=== PATIENT | male | born 1990 | race Caucasian/White ===

== ENCOUNTER 2017-02-18 14:26 | Emergency (ER) | payer BC ==
[2017-02-18] MEDS ORDERED: BABY ASPIRIN 81 MG CHEW PO ONE (14:36)
[2017-02-18] MEDS ORDERED: Carafate 1 GM PO ONE ×2 (14:36→14:47)
[2017-02-18] MEDS ORDERED: Pepcid 20 MG VIAL IV ONE ×2 (14:36→14:47)
[2017-02-18] MEDS ORDERED: GI COCKTAIL 60ML (Belladonn/Phenobarb/Lidoc PO ONE (14:38)
--- NOTE | 2017-02-18 14:44 | ERPHSYRPT ---
- History of Present Illness Time Seen by Provider: 02/18/17 14:30 Historian: patient, family Exam Limitations: no limitations Physician History: patient developed some chest pain after eating some spicy food last pm with horse radish; pain radiates to back on the right ; no N&V; no prior hx; hasn;t eaten since; some relief with tums; no sob or trauma; no prior hx; pain 7/10 no 510; awoke patietn from sleep at 330 am today Timing/Duration: today (persists), yesterday (onset), constant, gradual onset Activities at Onset: sleep Quality: burning Location: epigastric Chest Pain Radiation: back (right) Severity of Pain-Max: moderate Severity of Pain-Current: mild Modifying Factors: Improves With: antacids (help) Associated Symptoms: heartburn Prior Chest Pain/Cardiac Workup: no prior chest pain, no prior cardiac workup Nitro Today/Relief: no nitro taken today Aspirin Treatment Today: no aspirin today, provided by ED Allergies/Adverse Reactions: amoxicillin [Amoxicillin] Allergy (Mild, Verified 02/18/17 14:41) Hives Hx Tetanus, Diphtheria Vaccination/Date Given: Yes (Less than 5 yrs) Hx Influenza Vaccination/Date Given: No Hx Pneumococcal Vaccination/Date Given: No - Review of Systems Constitutional: No Symptoms Eyes: No Symptoms Ears, Nose, & Throat: No Symptoms Respiratory: No Cough, No Dyspnea, No Wheezing Cardiac: Chest Pain, No Edema, No Palpitations, No Syncope Abdominal/Gastrointestinal: No Abdominal Pain, No Nausea, No Vomiting, No Diarrhea Genitourinary Symptoms: No Symptoms Musculoskeletal: Back Pain (referred from front to right back), No Fall, No Injury Skin: No Symptoms Neurological: No Symptoms Psychological: No Symptoms Endocrine: No Symptoms Hematologic/Lymphatic: No Symptoms Immunological/Allergic: No Symptoms - Past Medical History Pertinent Past Medical History: No - Past Surgical History Past Surgical History: No - Social History Smoking Status: Never smoker Exposure to second hand smoke: No Alcohol Use: Socially Drug Use: none Patient Lives Alone: No Significant Family History: no pertinent family hx - Nursing Vital Signs Nursing Vital Signs: Initial Vital Signs Pulse Rate 74 02/18/17 14:33 Respiratory Rate 18 02/18/17 14:33 Blood Pressure 176/68 02/18/17 14:33 O2 Sat by Pulse Oximetry 99 02/18/17 14:33 Pain Scale Pain Intensity 5 - Physical Exam General Appearance: moderate distress, alert, obese Eye Exam: PERRL/EOMI, eyes nml inspection, No photophobia Ears, Nose, Throat Exam: normal ENT inspection, TMs normal, pharynx normal, moist mucous membranes Neck Exam: normal inspection, non-tender, supple, full range of motion, No meningismus, No JVD Respiratory Exam: normal breath sounds, lungs clear, airway intact, No chest tenderness, No respiratory distress Cardiovascular Exam: regular rate/rhythm, normal heart sounds, normal peripheral pulses, capillary refill <2 sec, No murmur, No edema Gastrointestinal/Abdomen Exam: soft, normal bowel sounds, tenderness (slight RUQ ), No distention, No guarding, No pulsatile mass, No rebound, No organomegaly Rectal Exam: deferred Back Exam: normal inspection, normal range of motion, No CVA tenderness, No vertebral tenderness, No rash Extremity Exam: normal inspection, normal range of motion, No yon's sign, No pedal edema Neurologic Exam: alert, oriented x 3, cooperative, 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, normal mood/affect, nml cerebellar function, nml station & gait Skin Exam: normal color, warm, dry, No rash, No cyanosis SpO2 Interpretation: normal SpO2: 98 Oxygen Delivery: Room Air - Course Nursing assessment & vital signs reviewed: Yes EKG Interpreted by Me: RATE (77), Sinus Rhythm, NORMAL AXIS, NORMAL INTERVALS, NORMAL QRS, NORMAL ST-T Rhythm Strip: Rate (76), Normal Sinus Rhythm Ordered Tests: Active Orders 24 hr Category Date Time Status Cash Checker STAT Care 02/18/17 14:37 Active EKG-ER Only STAT Care 02/18/17 14:36 Active IV Insertion STAT Care 02/18/17 14:36 Active Pulse Oximetry (ED) STAT Care 02/18/17 14:36 Active Re-Check Vital Signs STAT Care 02/18/17 14:36 Active CHEST 1 VIEW (PORTABLE) Stat Exams 02/18/17 14:37 Taken CBC W DIFF Stat Lab 02/18/17 14:51 Completed CMP Stat Lab 02/18/17 14:51 Completed PROTIME WITH INR Stat Lab 02/18/17 14:51 Completed TROPONIN Q3H Lab 02/18/17 14:51 Completed TROPONIN Q3H Lab 02/18/17 17:45 Ordered TROPONIN Q3H Lab 02/18/17 20:45 Ordered TROPONIN Q3H Lab 02/18/17 23:45 Ordered TROPONIN Q3H Lab 02/19/17 02:45 Ordered Medication Summary Generic Name Dose Route Start Last Admin Trade Name Alek PRN Reason Stop Dose Admin Sodium Chloride 1,000 mls @ 50 mls/hr 02/18/17 14:45 02/18/17 14:51 Sodium Chloride 0.9% 1000 Ml IV 03/20/17 14:44 50 mls/hr .Q20H DARYL Administration Discontinued Medications Generic Name Dose Route Start Last Admin Trade Name Alek PRN Reason Stop Dose Admin Al Hydrox/Mg Hydrox/Simethicone Confirm 02/18/17 14:48 Maalox Es 30 Ml Unit Dose Administered 02/18/17 14:49 Dose 30 ml .ROUTE .STK-MED ONE Aspirin 324 mg 02/18/17 14:36 02/18/17 14:50 Baby Aspirin 81 Mg Chew PO 02/18/17 14:37 324 mg STAT ONE Administration Aspirin Confirm 02/18/17 14:46 Baby Aspirin 81 Mg Chew Administered 02/18/17 14:47 Dose 324 mg .ROUTE .STK-MED ONE Belladonna Alkaloids/Phenobarbital 60 ml 02/18/17 14:38 02/18/17 14:51 Gi Cocktail 60ml (Belladonn/Phenobarb/Lidoc* PO 02/18/17 14:39 60 ml STAT ONE Administration Belladonna Alkaloids/Phenobarbital Confirm 02/18/17 14:48 Donnatol Liquid Administered 02/18/17 14:49 Dose 64.8 mg .ROUTE .STK-MED ONE Famotidine 20 mg 02/18/17 14:36 02/18/17 14:51 Pepcid 20 Mg Vial IV 02/18/17 14:37 20 mg STAT ONE Administration Famotidine Confirm 02/18/17 14:47 Pepcid 20 Mg Vial Administered 02/18/17 14:48 Dose 20 mg IV .STK-MED ONE Ketorolac Tromethamine 30 mg 02/18/17 16:02 02/18/17 16:06 Toradol 30 Mg Injection IV 02/18/17 16:03 30 mg STAT ONE Administration Ketorolac Tromethamine Confirm 02/18/17 16:05 Toradol 30 Mg Injection Administered 02/18/17 16:06 Dose 30 mg .ROUTE .STK-MED ONE Lidocaine HCl Confirm 02/18/17 14:48 Xylocaine Hcl Viscous * Administered 02/18/17 14:49 Dose 20 ml .ROUTE .STK-MED ONE Sucralfate 1 g 02/18/17 14:36 02/18/17 14:51 Carafate 1 Gm PO 02/18/17 14:37 1 g STAT ONE Administration Sucralfate Confirm 02/18/17 14:47 Carafate 1 Gm Administered 02/18/17 14:48 Dose 1 g PO .STK-MED ONE Lab/Rad Data: Laboratory Result Diagrams 02/18/17 14:51 02/18/17 14:51 Laboratory Results 02/18/17 02/18/17 02/18/17 Range/Units 14:51 14:51 14:51 WBC (4.0-10.5) K/mm3 RBC (4.1-5.6) M/mm3 Hgb (12.5-18.0) gm/dl Hct (42-50) % MCV (78-100) fl MCH (26-32) pg MCHC (32-36) g/dl RDW (11.5-14.0) % Plt Count (150-450) K/mm3 MPV (6-9.5) fl Gran % (36.0-66.0) % Lymphocytes % (24.0-44.0) % Monocytes % (0.0-12.0) % Eosinophils % (0.00-5.0) % Basophils % (0.0-0.4) % Basophils # (0-0.4) INR 1.17 (0.8-3.0) Sodium 141 (136-145) mEq/L Potassium 4.4 (3.5-5.1) mEq/L Chloride 104 (98-107) mEq/L Carbon Dioxide 27.5 (21-32) mEq/L Anion Gap 14.3 (5-15) MEQ/L BUN 9 (9-20) mg/dL Creatinine 1.11 (0.55-1.30) mg/dl Estimated GFR > 60 ML/MIN Glucose 106 (70-110) MG/DL Calcium 9.9 (8.5-10.1) mg/dL Total Bilirubin 0.50 (0.2-1.0) mg/dL AST 48 H (15-37) U/L ALT 117 H (12-78) U/L Alkaline Phosphatase 90 (46-116) U/L Troponin I < 0.017 (0.000-0.056) ng/ml Serum Total Protein 8.3 H (6.4-8.2) gm/dL Albumin 4.3 (3.4-5.0) g/dL 02/18/17 Range/Units 14:51 WBC 10.6 H (4.0-10.5) K/mm3 RBC 5.32 (4.1-5.6) M/mm3 Hgb 15.4 (12.5-18.0) gm/dl Hct 44.9 (42-50) % MCV 84.4 (78-100) fl MCH 28.9 (26-32) pg MCHC 34.3 (32-36) g/dl RDW 13.1 (11.5-14.0) % Plt Count 248 (150-450) K/mm3 MPV 10.1 H (6-9.5) fl Gran % 81.6 H (36.0-66.0) % Lymphocytes % 13.3 L (24.0-44.0) % Monocytes % 4.8 (0.0-12.0) % Eosinophils % 0.1 (0.00-5.0) % Basophils % 0.2 (0.0-0.4) % Basophils # 0.02 (0-0.4) INR (0.8-3.0) Sodium (136-145) mEq/L Potassium (3.5-5.1) mEq/L Chloride (98-107) mEq/L Carbon Dioxide (21-32) mEq/L Anion Gap (5-15) MEQ/L BUN (9-20) mg/dL Creatinine (0.55-1.30) mg/dl Estimated GFR ML/MIN Glucose (70-110) MG/DL Calcium (8.5-10.1) mg/dL Total Bilirubin (0.2-1.0) mg/dL AST (15-37) U/L ALT (12-78) U/L Alkaline Phosphatase (46-116) U/L Troponin I (0.000-0.056) ng/ml Serum Total Protein (6.4-8.2) gm/dL Albumin (3.4-5.0) g/dL reviewed - Progress Progress: improved (after meds), re-examined (after meds) Air Movement: good Progress Note: 02/18/17 14:45 ekg wnl; IV started, meds given; cxr and labs pending; will recheck after meds; to bedside 02/18/17 15:13 cbc ok; left shift; INR 1.17; at bedside; good reduction of discomfort with meds' vs improved; xr pending lab pending 02/18/17 15:36 recheck and cxr wnl; labs all wnl excpet Trop pending 02/18/17 15:37 no change in exam; at bedside; troponin 0.017 wnl; juice monitor and recheck 02/18/17 16:22 recheck and pain improved post meds; reviewed results and discussed treatment plan; will order OP GB US and have the patient follow up with Dr Murray.; Instructions given Blood Culture(s) Obtained: No Antibiotics given: No Counseled pt/family regarding: lab results, diagnosis, need for follow-up, rad results - Departure Time of Disposition: 16:24 Departure Disposition: Home Clinical Impression: Abdominal pain of unknown cause Condition: Stable Critical Care Time: No Referrals: SUZETTE GARCIA MD [NON-STAFF PHY W/O PRIVILEGES] - Instructions: Chest Pain, Abdominal Pain-Adult, General Gallbladder Conditions Additional Instructions: report to radiology at 10 am on Monday for GB US; NPO MN Monday; call Dr Murray for followup appt that is after the GB US exam Follow-up with family doctor as directed. Call for appointment. Return if any problems. If you smoke please stop. Call or follow up with your family doctor for assistance if you need it to stop. Please wear your seatbelt when driving. Have a nice day. Thank you for allowing us to participate in your care today. :o) Dr Manny Connell Prescriptions: Famotidine [Pepcid AC] 20 mg PO BID #20 tablet Sucralfate 1000 mg/10 ml [Carafate SUSPENSION 1000 MG/10 ML] 10 ml PO ACHS #8 oz
[2017-02-18] MEDS ORDERED: Sodium Chloride 0.9% 1000 ML 1,000 ML IV SCH (14:45)
[2017-02-18] MEDS ORDERED: BABY ASPIRIN 81 MG CHEW ONE (14:46)
[2017-02-18] MEDS ORDERED: Donnatol Liquid ONE (14:48)
[2017-02-18] MEDS ORDERED: MAALOX ES 30 ML UNIT DOSE ONE (14:48)
[2017-02-18] MEDS ORDERED: XYLOCAINE HCl Viscous ONE (14:48)
[2017-02-18] MEDS ORDERED: Sodium Chloride 0.9% 1000 ML 1,000 ML ONE (14:48)
[2017-02-18 15:02] LABS: BASOPHIL % 0.2 % (0.0-0.4); Eosinophil % 0.1 % (0.00-5.0); Granulocytes % 81.6 % (36.0-66.0); Lymphocytes % 13.3 % (24.0-44.0); Mean Cell Volume 84.4 fl (78-100); Mean Corpuscular Hemoglobin 28.9 pg (26-32); Mean Platelet Volume 10.1 fl (6-9.5); Monocytes % 4.8 % (0.0-12.0); Platelet Count 248 K/mm3 (150-450); Red Blood Count 5.32 M/mm3 (4.1-5.6); Red Cell Distribution Width 13.1 % (11.5-14.0); White Blood Count 10.6 K/mm3 (4.0-10.5)
[2017-02-18 15:05] LABS: INR 1.17 (0.8-3.0); PROTIME 13.2 SECONDS (8.83-12.87)
[2017-02-18 15:15] LABS: ALBUMIN 4.3 g/dL (3.4-5.0); ALKALINE PHOSPHATASE 90 U/L (46-116); ANION GAP 14.3 MEQ/L (5-15); BLOOD UREA NITROGEN 9 mg/dL (9-20); CHLORIDE 104 mEq/L (98-107); Carbon Dioxide 27.5 mEq/L (21-32); Glucose 106 MG/DL (70-110); Potassium 4.4 mEq/L (3.5-5.1); SGOT/AST 48 U/L (15-37); SGPT/ALT 117 U/L (12-78); SODIUM 141 mEq/L (136-145); Total Protein 8.3 gm/dL (6.4-8.2)
[2017-02-18] MEDS ORDERED: TORAdol 30 mg Injection IV ONE (16:02)
[2017-02-18] MEDS ORDERED: TORAdol 30 mg Injection ONE (16:05)
[2017-02-18 16:33] VITALS: BP 142/72; PULSE 64; O2SAT 99
--- NOTE | 2017-02-18 21:29 | XRAY ---
Indication: Chest pain. Comparison: None Portable chest demonstrates normal heart, lungs, and bony thorax.
== END 2017-02-18 16:34 | disposition home or self-care (01) ==
LOC: ED 14:26
DX: R10.13 Epigastric pain (principal)
CPT/HCPCS: 36000; 36415; 71010; 80053; 84484; 85025; 85610; 93005; 93041; 96360; 96361; 96374; 96375; 99284; J1885; A9270-GY

== ENCOUNTER 2017-03-19 23:54 | Emergency (ER) | payer BC ==
[2017-03-20] MEDS ORDERED: Zofran 4 MG/2 ML VIAL IV ONE (00:48)
[2017-03-20] MEDS ORDERED: Sodium Chloride 0.9% 1000 ML 1,000 ML IV STA (00:48)
[2017-03-20] MEDS ORDERED: Hydromorphone 1 mg/ml Ampule IV ONE ×2 (00:48→02:21)
[2017-03-20] MEDS ORDERED: Pepcid 20 MG VIAL IV ONE ×2 (00:48→00:53)
[2017-03-20 00:52] LABS: BASOPHIL % 0.2 % (0.0-0.4); Eosinophil % 1.3 % (0.00-5.0); Granulocytes % 68.5 % (36.0-66.0); Lymphocytes % 22.8 % (24.0-44.0); Mean Corpuscular Hemoglobin 28.9 pg (26-32); Mean Platelet Volume 10.4 fl (6-9.5); Monocytes % 7.2 % (0.0-12.0); Platelet Count 198 K/mm3 (150-450); Red Blood Count 5.12 M/mm3 (4.1-5.6); White Blood Count 8.3 K/mm3 (4.0-10.5)
[2017-03-20] MEDS ORDERED: Sodium Chloride 0.9% 1000 ML 1,000 ML ONE (00:53)
[2017-03-20] MEDS ORDERED: Zofran 4 MG/2 ML VIAL ONE (00:53)
[2017-03-20] MEDS ORDERED: Hydromorphone 1 mg/ml Ampule ONE ×2 (00:53→02:25)
--- NOTE | 2017-03-20 00:55 | ERPHSYRPT ---
- History of Present Illness Time Seen by Provider: 03/20/17 00:41 Historian: patient, family () Patient Subjective Stated Complaint: PT STATES HE IS HAVING SEVERE ABDOMINAL PAIN THAT RADIATES TO HIS BACK AND EPIGASTRIC REGION. REPORTS HE HAS VOMITED X1 THIS EVENING. STATES HE IS SCHEDULED TO HAVE HIS GALLBLADDER PER DR. FELDMAN ON 04/03/17. REPORTS HE HAS HAD SIMILAR EPISODES RECENTLY. Triage Nursing Assessment: PT IS AOX3, PUPILS PERRL, PT IS AFEBRILE. RESPS ARE EASY AND NON LABORED, SKIN IS PALE AND CLAMMY, PT IS DIAPHORETIC, RADIAL PULSES ARE STRONG AND EQUAL. ABD IS SOFT AND TENDER UPON PALPATION IN THE RUQ. BOWEL SOUNDS ARE PRESENT AND NORMOACTIVE X4. Physician History: CC: abd pain Hx: 26 y/o with hx of gallbladder problems scheduled for cholecystectomy soon per Dr Huitron. He ate kiran, steak, and peppers in past two days. Tonite awoke at 11PM with severe upper abd pain and vomiting. No fever, chills, diarrhea. No rash. Pain sharp. Timing/Duration: today Allergies/Adverse Reactions: amoxicillin [Amoxicillin] Allergy (Mild, Verified 02/18/17 14:41) Hives bee venom protein (honey bee) Allergy (Verified 03/20/17 00:20) Hx Tetanus, Diphtheria Vaccination/Date Given: No Hx Influenza Vaccination/Date Given: No Hx Pneumococcal Vaccination/Date Given: No Immunizations Up to Date: Yes - Review of Systems Constitutional: No Fever, No Chills Eyes: No Symptoms Ears, Nose, & Throat: No Symptoms Respiratory: No Cough, No Dyspnea Cardiac: No Chest Pain Abdominal/Gastrointestinal: Abdominal Pain, Nausea, Vomiting, No Diarrhea Genitourinary Symptoms: No Dysuria Musculoskeletal: Back Pain Skin: No Rash Neurological: No Headache All Other Systems: Reviewed and Negative - Past Medical History Pertinent Past Medical History: No - Past Surgical History Past Surgical History: No - Social History Smoking Status: Never smoker Exposure to second hand smoke: No Alcohol Use: Socially Drug Use: none Patient Lives Alone: No Significant Family History: no pertinent family hx - Nursing Vital Signs Nursing Vital Signs: Initial Vital Signs Temperature 98.5 F 03/20/17 00:11 Pulse Rate 82 03/20/17 00:11 Respiratory Rate 20 03/20/17 00:11 Blood Pressure 153/82 03/20/17 00:11 O2 Sat by Pulse Oximetry 98 03/20/17 00:11 Pain Scale Pain Intensity 5 - Physical Exam General Appearance: alert Eye Exam: PERRL/EOMI Ears, Nose, Throat Exam: normal ENT inspection, moist mucous membranes Neck Exam: normal inspection, non-tender, supple Respiratory Exam: normal breath sounds, lungs clear Cardiovascular Exam: regular rate/rhythm Gastrointestinal/Abdomen Exam: soft, tenderness (epigastrum and RUQ), guarding ( mild), No distention, No mass Male Genitalia Exam: normal genitalia, No hernia, No testicular tenderness Extremity Exam: normal inspection, normal range of motion Neurologic Exam: alert, oriented x 3, cooperative, sensation nml, No motor deficits Skin Exam: warm, dry, No rash SpO2 Interpretation: normal SpO2: 98 Oxygen Delivery: Room Air - Course Nursing assessment & vital signs reviewed: Yes Ordered Tests: Active Orders 24 hr Category Date Time Status Clean Catch Urine Specimen STAT Care 03/20/17 00:48 Active IV Insertion STAT Care 03/20/17 00:48 Active NPO (ED) STAT Care 03/20/17 00:48 Active CBC W DIFF Stat Lab 03/20/17 00:30 Completed CMP Stat Lab 03/20/17 00:30 Completed LIPASE Stat Lab 03/20/17 00:30 Completed UA W/RFX UR CULTURE Stat Lab 03/20/17 00:48 Ordered Medication Summary Discontinued Medications Generic Name Dose Route Start Last Admin Trade Name Freq PRN Reason Stop Dose Admin Diphenhydramine HCl 25 mg 03/20/17 02:21 03/20/17 02:31 Benadryl 50 Mg/Ml IV 03/20/17 02:22 25 mg STAT ONE Administration Diphenhydramine HCl Confirm 03/20/17 02:25 Benadryl 50 Mg/Ml Administered 03/20/17 02:26 Dose 50 mg .ROUTE .STK-MED ONE Famotidine 20 mg 03/20/17 00:48 03/20/17 01:00 Pepcid 20 Mg Vial IV 03/20/17 00:49 20 mg STAT ONE Administration Famotidine Confirm 03/20/17 00:53 Pepcid 20 Mg Vial Administered 03/20/17 00:54 Dose 20 mg IV .STK-MED ONE Hydromorphone HCl 1 mg 03/20/17 00:48 03/20/17 01:00 Hydromorphone 1 Mg/Ml Ampule IV 03/20/17 00:49 1 mg STAT ONE Administration Hydromorphone HCl Confirm 03/20/17 00:53 Hydromorphone 1 Mg/Ml Ampule Administered 03/20/17 00:54 Dose 1 mg .ROUTE .STK-MED ONE Hydromorphone HCl 1 mg 03/20/17 02:21 03/20/17 02:35 Hydromorphone 1 Mg/Ml Ampule IV 03/20/17 02:22 1 mg STAT ONE Administration Hydromorphone HCl Confirm 03/20/17 02:25 Hydromorphone 1 Mg/Ml Ampule Administered 03/20/17 02:26 Dose 1 mg .ROUTE .STK-MED ONE Sodium Chloride 1,000 mls @ 999 mls/hr 03/20/17 00:48 03/20/17 01:01 Sodium Chloride 0.9% 1000 Ml IV 03/20/17 01:48 999 mls/hr .Q1H1M STA Administration Sodium Chloride Confirm 03/20/17 00:53 Sodium Chloride 0.9% 1000 Ml Administered 03/20/17 00:54 Dose 1,000 mls @ ud .ROUTE .STK-MED ONE Ondansetron HCl 4 mg 03/20/17 00:48 03/20/17 01:00 Zofran 4 Mg/2 Ml Vial IV 03/20/17 00:49 4 mg STAT ONE Administration Ondansetron HCl Confirm 03/20/17 00:53 Zofran 4 Mg/2 Ml Vial Administered 03/20/17 00:54 Dose 4 mg .ROUTE .STK-MED ONE Lab/Rad Data: Laboratory Result Diagrams 03/20/17 00:30 03/20/17 00:30 Laboratory Results 03/20/17 03/20/17 Range/Units 00:30 00:30 WBC 8.3 (4.0-10.5) K/mm3 RBC 5.12 (4.1-5.6) M/mm3 Hgb 14.8 (12.5-18.0) gm/dl Hct 43.5 (42-50) % MCV 85.0 (78-100) fl MCH 28.9 (26-32) pg MCHC 34.0 (32-36) g/dl RDW 13.0 (11.5-14.0) % Plt Count 198 (150-450) K/mm3 MPV 10.4 H (6-9.5) fl Gran % 68.5 H (36.0-66.0) % Lymphocytes % 22.8 L (24.0-44.0) % Monocytes % 7.2 (0.0-12.0) % Eosinophils % 1.3 (0.00-5.0) % Basophils % 0.2 (0.0-0.4) % Basophils # 0.02 (0-0.4) Sodium 142 (136-145) mEq/L Potassium 3.9 (3.5-5.1) mEq/L Chloride 105 (98-107) mEq/L Carbon Dioxide 27.8 (21-32) mEq/L Anion Gap 13.4 (5-15) MEQ/L BUN 15 (9-20) mg/dL Creatinine 1.14 (0.55-1.30) mg/dl Estimated GFR > 60 ML/MIN Glucose 101 (70-110) MG/DL Calcium 9.9 (8.5-10.1) mg/dL Total Bilirubin 0.90 (0.2-1.0) mg/dL AST 147 H (15-37) U/L ALT 177 H (12-78) U/L Alkaline Phosphatase 112 (46-116) U/L Serum Total Protein 8.0 (6.4-8.2) gm/dL Albumin 4.3 (3.4-5.0) g/dL Lipase 82 (73-393) U/L - Progress Progress Note: 03/20/17 03:02 Pt improved. Mild elevation of liver enzymes. Reviewed prior sonogram which showed gallstones and wall thickening. Called Dr Ruby for [facility] and he advised obs or home, pt preference. Pt wants to go home and will call Dr Huitron in AM. Counseled pt/family regarding: lab results, diagnosis, need for follow-up - Departure Time of Disposition: 03:03 Departure Disposition: Home Clinical Impression: Biliary colic, Elevated transaminase measurement Condition: Stable Critical Care Time: No Referrals: TABATHA HUITRON [COURTESY STAFF] - Instructions: Abdominal Pain-Adult, General Gallbladder Conditions, [place] Diet , Fat-Restricted Diet Additional Instructions: [place] diet. Call Dr Huitron office in AM. Return for fever, worsened pain or concerns. No driving tonite or while taking norco. Rx norco. Prescriptions: Hydrocodone Bit/Acetaminophen [[place] 5-325 Tablet] 1 each PO Q6H PRN PRN #10 tablet PRN Reason: Pain
[2017-03-20 01:01] LABS: ALBUMIN 4.3 g/dL (3.4-5.0); ALKALINE PHOSPHATASE 112 U/L (46-116); ANION GAP 13.4 MEQ/L (5-15); BLOOD UREA NITROGEN 15 mg/dL (9-20); CHLORIDE 105 mEq/L (98-107); Carbon Dioxide 27.8 mEq/L (21-32); Glucose 101 MG/DL (70-110); LIPASE 82 U/L (73-393); Potassium 3.9 mEq/L (3.5-5.1); SGOT/AST 147 U/L (15-37); SGPT/ALT 177 U/L (12-78); SODIUM 142 mEq/L (136-145)
[2017-03-20] MEDS ORDERED: BENADRYL 50 MG/ML IV ONE (02:21)
[2017-03-20] MEDS ORDERED: BENADRYL 50 MG/ML ONE (02:25)
[2017-03-20] MEDS ORDERED: NORCO 5/325 MG PO ONE (03:05)
[2017-03-20] MEDS ORDERED: NORCO 5/325 MG ONE (03:09)
[2017-03-20 03:52] VITALS: BP 128/79; PULSE 79; O2SAT 99
== END 2017-03-20 03:52 | disposition home or self-care (01) ==
LOC: ED 23:54
DX: K80.50 Calculus of bile duct without cholangitis or cholecystitis without obstruction (principal); R74.0 Nonspecific elevation of levels of transaminase and lactic acid dehydrogenase [LDH]; R10.9 Unspecified abdominal pain; R10.13 Epigastric pain; R11.10 Vomiting, unspecified
CPT/HCPCS: 36000; 36415; 80053; 83690; 85025; 96360; 99284; J1170; J1200; J2405; A9270-GY

== ENCOUNTER 2017-04-03 10:23 | Day surgery (SDC) | payer BC ==
--- NOTE | 2017-04-01 15:34 | HP ---
DATE OF SURGERY: 04/03/2017 HISTORY OF PRESENT ILLNESS: The patient is a 26 year-old who started to have symptoms on 02/18/2017. He had some spicy food the night before and the next morning chest pain radiating to his back and right upper quadrant. Later ultrasound showed cholelithiasis and wall thickening. It was felt that he had symptomatic cholelithiasis, chronic cholecystitis. PAST MEDICAL HISTORY: He denies any chronic illnesses. PAST SURGICAL HISTORY: He had pilonidal cyst surgery in the past. MEDICATIONS: None. ALLERGIES: PENICILLIN. FAMILY HISTORY: Renal problems but otherwise negative in regards to this problem. SOCIAL HISTORY: No smoking or alcohol abuse. REVIEW OF SYSTEMS: Twelve systems reviewed per admission assessment. No chest pain or palpitations other systems negative or noncontributory as above and per preadmission questionnaire. PHYSICAL EXAMINATION: GENERAL: No acute distress. HEENT: Sclerae nonicteric. NECK: No JVD. CHEST: Equal excursion, nonlabored breathing. CVS: Regular rate and rhythm. ABDOMEN: Soft. No peritoneal signs. EXTREMITIES: No significant edema. NEURO: Alert, moving extremities symmetrically. No gross motor deficits noted. IMPRESSION: Symptomatic cholelithiasis, probable chronic cholecystitis. I feel the patient will benefit from cholecystectomy. Risks and benefits explained in detail including but not limited to bleeding or infection, risk of trocar injury or hernia, small risk of bowel, bladder or blood vessel injury, small risk of bile leak, bile duct injury, retained stone or sludge possibly requiring further procedure either open or ERCP, general risk of anesthesia, deep venous thrombosis, pulmonary embolism, pneumonia, perioperative risk of aches, pains, bloating, constipation and/or loose stools possibly even chronic in nature. General risk of deep venous thrombosis, pulmonary embolism or pneumonia, possibility that this procedure may not improve his symptoms that he may need further work up and/or testing, endoscopy, other studies or procedures. He understands and agrees to the planned procedure, will proceed with laparoscopic cholecystectomy with possible as an outpatient.
[~2017-04-03 10:23] MED LIST: CLINDAMYCIN-D5W 900 MG/50 ML*** 900 MG/50 ML BAG IV STA; Lactated Ringers 1,000 ML IV ONE; Lactated Ringers 1,000 ML IV SCH; Levofloxacin 500MG/100ML D5W 500 MG/100 ML BAG IV ONE; Levofloxacin 500MG/100ML D5W 500 MG/100 ML BAG IV SCH; Sensorcaine 0.25% 10 ML ONE
[2017-04-03] MEDS ORDERED: BRIDION 200MG/2ML IV ONE (10:24)
[2017-04-03] MEDS ORDERED: Quelicin Fliptop 200 MG/10 ML IV ONE (10:24)
[2017-04-03] MEDS ORDERED: TORAdol 30 mg Injection IV ONE (10:24)
[2017-04-03] MEDS ORDERED: Decadron 4 MG INJ IV ONE (10:24)
[2017-04-03] MEDS ORDERED: DIPRIVAN 200 MG/20 ML IV ONE (10:24)
[2017-04-03] MEDS ORDERED: Zemuron 100 MG/10 ML IV ONE (10:24)
[2017-04-03] MEDS ORDERED: DILAUDID 2 MG INJECTION IV ONE (10:24)
[2017-04-03] MEDS ORDERED: Zofran 4 MG/2 ML VIAL IV ONE (10:24)
[2017-04-03] MEDS ORDERED: SUBLIMAZE 100 MCG/2 ML IV ONE (10:24)
[2017-04-03 10:59] VITALS: O2SAT 97
[2017-04-03 14:30] VITALS: BP 145/75; PULSE 56
--- NOTE | 2017-04-04 08:16 | OP ---
SURGERY DATE/TIME: 04/03/2017 1219 PREOPERATIVE DIAGNOSIS: Symptomatic cholelithiasis, chronic cholecystitis. POSTOPERATIVE DIAGNOSIS: Symptomatic cholelithiasis, chronic cholecystitis including abnormal appearing liver. PROCEDURES: 1) Laparoscopic cholecystectomy. 2) Laparoscopic assisted TruCut liver core biopsy. SURGEON: Dr. Beck Huitron. ANESTHESIA: General. ESTIMATED BLOOD LOSS: Minimal. INDICATIONS: As noted above. Risks and benefits explained in detail but not limited to and consent was obtained. DESCRIPTION OF PROCEDURE AND FINDINGS: The patient was taken to the OR. General anesthesia was induced. Abdomen prepped and draped in the usual sterile fashion. After official time out and no disagreement with planned procedure, a transverse incision made at the supraumbilical area. Fascia grasped and pulled upward. Veress needle inserted and tested with saline. Pneumoperitoneum accomplished insufflating opening pressure of 0-15. An 11 mm bladeless port and camera were inserted without difficulty followed by two - 5 mm right upper quadrant ports and initially a 5 mm epigastric port later switched out to 12 mm port. The gallbladder is quite distended with stones. The liver had an orange appearing rather than nice purple in this young 26 year-old. Question whether fatty infiltration or changes. The gallbladder was slowly and carefully dissected free from posterior lateral to anterior fashion. The cystic artery was carefully isolated directly on the gallbladder wall clipped x3 and divided this opened up the angle. The cystic duct and infundibular junction slowly and carefully skeletonized. An extensive chronic inflammatory reaction was slowly and carefully well skeletonized with gentle blunt dissection with EndoKittner and blunt dissector slowly and carefully skeletonized the infundibular cystic duct junction. There was extensive chronic almost concrete inflammatory reaction. This took quite some time but slowly and carefully skeletonized. Once this was skeletonized it was felt that it would be safer to go ahead and use the EndoGIA stapler to control the cystic duct stump. Once this was skeletonized critical view obtained both anterior and posteriorly, small little oozing side branches off the cystic artery going directly into the infundibulum was clipped. This opened up the angle of the cystic duct and infundibular junction slowly and carefully had been skeletonized until critical view was obtained both anteriorly and posteriorly. The cystic duct was then controlled with the stapled in the usual fashion with good secure closure. The gallbladder is slowly and carefully dissected free from its almost concrete reaction to the liver bed this took quite some time clipping additional oozing side branches off the cystic artery as necessary directly on the gallbladder wall. Just prior to releasing from final attachments to the anterior edge of the liver the liver bed re-inspected. Clips noted to be in place in cystic duct and cystic artery stumps. The staple line was intact on cystic duct stump. No signs of any active bleeding or leakage. Given the inflammatory reaction it was felt the patient would benefit from ANNABELLA drain to reduce the risk of collection formation given the extensive inflammatory reaction. The gallbladder was released from final attachments to the anterior edge of the liver, placed in a Pleatman sac and pulled up into the epigastric wound. Again this was 12 port to allow for using the stapler. Gallbladder placed in Pleatman sac it was pulled up. It had moderate large stones and inflammation it was necessary to enlarge the fascial defect with a clamp. The gallbladder in the Pleatman sac was then able to be pulled up where the gallbladder was opened and decompressed of multiple stones allowing the gallbladder and Pleatman sac to be pulled free and passed off. At this point the fascia closed using figure-of-8 and #1 Vicryl to allow for closure of the fascia at the end of the procedure under direct vision of the camera. Port replaced. Copious amount of irrigation accomplished lateral to the liver and subhepatic space irrigating until clear. The liver bed re-inspected. Clips noted to be in place in cystic duct and cystic artery stumps. Cystic duct stump staple line was intact. Again given the extensive inflammatory reaction it was felt that he would benefit from temporary ANNABELLA drain placement to reduce the risk of collection formation. ANNABELLA drain placed at the lateral port incision. At this point the 10/11 fascial defect at the umbilical area was closed with puncture closure device with #1 Vicryl. Pneumoperitoneum decompressed. The wound was irrigated out. Skin incision closed with 4-0 Vicryl. Steri-Strips and sterile dressing applied. 0.25% Marcaine local injected along the skin incision fascial defect. The patient tolerated the procedure well. There were no immediate complications. It should be noted that just prior to closing all the fascial defects at the end given the orange appearing liver in this quite young patient of 26 years old it felt that it warranted TruCut core biopsy using laparoscopic elements with left side of the liver. Therefore part of the anterior edge of the liver was elevated upward with laparoscopic grasper and a small stab wound was made. Core biopsy made carefully inserted and directed down through the anterior edge of the liver staying well away avoiding any pass through carefully noting the bulge of the tip avoiding any pass through and avoiding any issue with the bowel or bile duct. Core biopsy is sent. There were no significant signs of any bleeding. Cauterization of surface were the needle had been directed through the liver was accomplished. No signs of any bile leak. No signs of any bleeding. Again the ANNABELLA drain had been placed in good position out the lateral port incision. Good hemostasis noted. Pneumoperitoneum decompressed. The fascial defects were closed as mentioned above with puncture closure device. Skin incision closed with 4-0 Vicryl. Steri-Strips and sterile dressing applied. 0.25% Marcaine local injected along the skin incision fascial defect. The patient tolerated the procedure well. There were no immediate complications. Findings discussed with the family out in the waiting area and shown a picture of the liver.
== END 2017-04-03 15:00 | disposition home or self-care (01) ==
LOC: SDC 10:23
PROVIDERS: ATTEND Surgery
PROC: 0FT44ZZ Resection of Gallbladder, Percutaneous Endoscopic Approach (ICD-10-PCS; principal; 2017-04-03)
PROC: 0FB04ZX Excision of Liver, Percutaneous Endoscopic Approach, Diagnostic (ICD-10-PCS; 2017-04-03)
DX: K80.10 Calculus of gallbladder with chronic cholecystitis without obstruction (principal)
CPT/HCPCS: 00790; 36415; 88304; 88307; 88313; J0330; J1100; J1170; J1885; J1956; J2405; J2704; J3010

== ENCOUNTER 2024-07-29 12:00 | Day surgery (SDC) | payer OTHER ==
--- NOTE | 2024-07-29 08:49 | HP ---
HISTORY OF PRESENT ILLNESS: The patient has a history of some intermittent drainage, some pain in pilonidal area going on for 12 years, has seen Dr. Lopez in the past. PAST MEDICAL HISTORY: Hypertension, asthma, depression, reflux, little bit overweight. HOME MEDICATIONS: Loratadine, losartan, testosterone, Fluoxetine, pantoprazole, Flonase, Allergy relief, azelastine, albuterol sulfate. ALLERGIES: Amoxicillin, penicillin. PAST SURGICAL HISTORY: Cholecystectomy in the past. SOCIAL HISTORY: No smoking. Occasional alcohol use. REVIEW OF SYSTEMS: Twelve systems reviewed. No chest pain or palpitations. Other systems negative or noncontributory as above and per preadmission questionnaire. PHYSICAL EXAMINATION: GENERAL: Weight 329 pounds. No acute distress. HEENT: Sclerae anicteric. NECK: No JVD. CHEST: Equal excursion, nonlabored breathing. CARDIOVASCULAR: Regular rate and rhythm. ABDOMEN: Soft. EXTREMITIES: No cyanosis or edema. NEUROLOGIC: Alert and oriented, moving all extremities symmetrically. PSYCHIATRIC: Appropriate mood and affect. GENITOURINARY: Pilonidal area, extensive pilonidal disease, multiple pits, swelling and hair. IMPRESSION: Extensive draining pilonidal cyst disease. Discussed options and referral for tertiary or flap mobilization versus excision and packing. Risks explained in detail, not limited to, bleeding, infection, aches, pains, risk of infection, nonhealing, risk of recurrence up to 20% or higher and likely need for wound packing at least for 8 to 12 weeks; risk of anesthesia, DVT, PE, pneumonia; risk of nonhealing and possible need for plastic referral, importance of keeping hand away from the area. Continue medications for asthma, hypertension, depression, and reflux. Otherwise, we will schedule outpatient excision of pilonidal cyst disease with packing.
[2024-07-29] MEDS: Lactated Ringers 1,000 ML IV SCH (12:16)
[2024-07-29 12:23] VITALS: RESP 18
[2024-07-29 12:35] LABS: Hematocrit 49.1 % (40.1-51.0); Hemoglobin 16.5 g/dL (13.7-17.5); Mean Cell Volume 84.4 fL (79.0-92.2); Mean Corpuscular Hemoglobin 28.4 pg (25.7-32.2); Mean Corpuscular Hgb Concent. 33.6 g/dL (32.3-36.5); Mean Platelet Volume 9.6 fL (9.4-12.4); Platelet Count 237 x10^3/uL (163-337); Red Blood Count 5.82 x10^6/uL (4.63-6.08); Red Cell Distribution Width 13.4 % (11.6-14.4); White Blood Count 7.8 x10^3/uL (4.23-9.07)
[2024-07-29] MEDS ORDERED: EXPAREL 133 MG/10 ML VIAL IJ ONE (12:44)
[2024-07-29 12:48] LABS: ANION GAP 9.9 MEQ/L (5-15); Calcium 9.1 mg/dL (8.4-10.2); Creatinine 1 0.92 mg/dL (0.66-1.25); EST GLOMERULAR FILTRATION RATE 112.6 ML/MIN; Potassium 4.1 mmol/L (3.5-5.1)
[2024-07-29] MEDS ORDERED: ROCURONIUM BROMIDE IV ONE (13:19)
[2024-07-29] MEDS ORDERED: propofoL IV ONE (13:19)
[2024-07-29] MEDS ORDERED: Quelicin Fliptop 200 MG/10 ML ONE (13:19)
[2024-07-29] MEDS ORDERED: SUBLIMAZE 100 MCG/2 ML ONE (13:20)
[2024-07-29] MEDS ORDERED: Zofran 4 MG/2 ML VIAL ONE (13:25)
[2024-07-29] MEDS ORDERED: dexAMETHasone sodium phosphate ONE (13:25)
[2024-07-29] MEDS ORDERED: CLINDAMYCIN-D5W 900 MG/50 ML*** 900 MG/50 ML BAG IV ONE (13:40)
[2024-07-29 15:31] VITALS: TEMP 97.2; O2SAT 97
[2024-07-29 15:35] VITALS: BP 130/82; PULSE 82
--- NOTE | 2024-07-30 18:06 | OP ---
SURGERY DATE/TIME: 07/29/2024 5798-5801 PREOPERATIVE DIAGNOSIS: Very extensive pilonidal cyst disease. POSTOPERATIVE DIAGNOSIS: Complex extensive pilonidal cyst disease. PROCEDURE: Excision of complex extensive pilonidal cyst disease (10 cm long x 7 cm wide x 7 cm deep), with irrigation and packing. SURGEON: Carlos Huitron MD ANESTHESIA: General. ESTIMATED BLOOD LOSS: Minimal. INDICATIONS: As noted above. Consent was obtained. The risks have been explained in the perioperative phase in detail and the likely need for packing; likely need for majority to heal in 8 to 12 weeks if he keeps it clean, keeps the hair away from it, and keeps the packing changed; some fail to heal; 20% risk of recurrence; general risk of aches and pains; possible need if he gets recurrent problems of needing plastic surgery referral. Consent was obtained. DESCRIPTION OF PROCEDURE AND FINDINGS: He was taken to the operating room. General anesthesia was induced. He was placed in prone position, prepped and draped in usual sterile fashion. After official time-out, no disagreement in planned procedure, marking out and around the extensive indurated area in the upper part of the pilonidal area. Dissected around it down to the more caudal aspect, which he had a large amount of hair up in the wound, dissecting down underneath it to the level of the fascia on the sacral area. Specimen was passed off. Hemostasis accomplished with pinpoint cautery. It was felt that there was too much infection and too large of an area to try to close. [place] it was best to let this pack and heal with secondary intent as it had been explained in the office. It was packed with normal saline wet-to-dry. Sterile dressing was applied. There were no immediate complications. Findings were discussed with the family out in the waiting area.
== END 2024-07-29 15:39 | disposition home or self-care (01) ==
LOC: SDC 12:00
PROVIDERS: ATTEND Surgery
DX: L05.91 Pilonidal cyst without abscess (principal); I10 Essential (primary) hypertension
CPT/HCPCS: 36415; 80048; 85027; 93005; J0330; J0666; J1100; J2405; J2704; J3010; L0625